=== PATIENT | female | born 1975 | race American Indian/Alaskan Native ===

== ENCOUNTER 2020-12-23 09:58 | Emergency (ER) | payer SELFPAY ==
[2020-12-23] MEDS ORDERED: ONDANSETRON 4 MG/2 ML INJ IV ONE ×2 (10:52→13:46)
[2020-12-23] MEDS ORDERED: SODIUM CHLORIDE 0.9% 1000 ML 1,000 ML IV ONE (10:52)
[2020-12-23] MEDS ORDERED: KETOROLAC 30 MG/1 ML INJ IV ONE ×2 (10:52→13:46)
--- NOTE | 2020-12-23 10:53 | Emergency Department Report ---
ED Headache HPI - General Chief Complaint: Headache Stated Complaint: DIZZINESS Time Seen by Provider: 12/23/20 10:47 Source: patient - History of Present Illness Initial Comments: 45 yo comes to ER co headache x 1 day. She states she woke up with it yesterday and it has not gone away or gotten any better despite OTC pain meds. Denies trauma, fever, chills, cough, abd pain, back pain. Denies n/v. Denies light sensitivity. Denies hx of migraine headaches. Did not get covid19 immunization. No known exposure. Pt comes to ER via POV, she is ambulatory and on ill appearing. Timing/Duration: 24 hours Quality: mild Head Injury Location: global Recent Head Trauma: no recent headache/trauma Modifying Factors: worse with: cold therapy, exposure to light, immobilization, medication, movement, rest, other Associated Symptoms: denies: denies symptoms, confusion, fatigue, facial pain, fever/chills, flushing, loss of consciousness, nausea/vomiting, nasal congestion, nasal drainage, numbness in legs/feet, rash, seizures, sinus infection, stiff neck, vision changes, weakness, other Allergies/Adverse Reactions: Allergies tramadol Adverse Reaction (Verified 12/23/20 10:44) Nausea Nausea Home Medications: Ambulatory Orders Ibuprofen [Motrin] 800 mg PO Q8HR PRN #30 tablet 12/23/20 Sulfamethoxazole/Trimethoprim [Bactrim DS TAB] 1 each PO BID #10 tablet 12/23/20 ED Review of Systems ROS: Stated complaint: DIZZINESS Other details as noted in HPI Comment: All other systems reviewed and negative ED Past Medical Hx - Past Medical History Previous Medical History?: No - Surgical History Past Surgical History?: No - Family History Family history: no significant - Social History Smoking Status: Never Smoker Substance Use Type: Alcohol - Medications Home Medications: Home Medications Medication Instructions Recorded Confirmed Last Taken Type Ibuprofen [Motrin] 800 mg PO Q8HR PRN #30 tablet 12/23/20 Unknown Rx Sulfamethoxazole/Trimethoprim 1 each PO BID #10 tablet 12/23/20 Unknown Rx [Bactrim DS TAB] ED Physical Exam - General Limitations: No Limitations General appearance: alert, in no apparent distress - Head Head exam: Present: atraumatic, normocephalic - Eye Eye exam: Present: normal appearance - ENT ENT exam: Present: mucous membranes moist - Neck Neck exam: Present: normal inspection - Respiratory Respiratory exam: Present: normal lung sounds bilaterally. Absent: respiratory distress - Cardiovascular Cardiovascular Exam: Present: regular rate, normal rhythm. Absent: systolic murmur, diastolic murmur, rubs, gallop - GI/Abdominal GI/Abdominal exam: Present: soft, normal bowel sounds - Extremities Exam Extremities exam: Present: normal inspection - Back Exam Back exam: Present: normal inspection - Neurological Exam Neurological exam: Present: alert, oriented X3 - Psychiatric Psychiatric exam: Present: normal affect, normal mood - Skin Skin exam: Present: warm, dry, intact, normal color. Absent: rash ED Course Vital Signs 12/23/20 12/23/20 10:41 14:05 Temperature 98.6 F 98.1 F Pulse Rate 70 115 H Respiratory 16 16 Rate Blood Pressure 133/93 157/84 [Left] O2 Sat by Pulse 98 100 Oximetry ED Medical Decision Making - Lab Data Result diagrams: 12/23/20 11:04 12/23/20 11:04 - Radiology Data Radiology results: report reviewed, image reviewed nap - Medical Decision Making CT head nap labs noted Labs 12/23/20 12/23/20 12/23/20 11:04 11:04 12:00 WBC 4.1 L RBC 4.16 Hgb 11.2 Hct 35.0 MCV 84 MCH 27 L MCHC 32 RDW 16.6 H Plt Count 248 Lymph % (Auto) 20.1 [place] % (Auto) 10.5 H Eos % (Auto) 0.6 Baso % (Auto) 0.5 Lymph # (Auto) 0.8 L [place] # (Auto) 0.4 Eos # (Auto) 0.0 Baso # (Auto) 0.0 Seg Neutrophils % 68.3 Seg Neutrophils # 2.8 Sodium 136 L Potassium 4.2 Chloride 103.1 Carbon Dioxide 26 Anion Gap 11 BUN 7 Creatinine 0.7 Estimated GFR > 60 BUN/Creatinine Ratio 10 Glucose 100 Calcium 9.2 Total Bilirubin 0.30 AST 16 ALT 9 Alkaline Phosphatase 85 Total Protein 7.8 Albumin 3.8 L Albumin/Globulin Ratio 1.0 Urine Color Yellow Urine Turbidity Clear Urine pH 8.0 H Ur Specific [place] 1.008 Urine Protein <15 mg/dl Urine Glucose (UA) Neg Urine Ketones Neg Urine Blood Lg Urine Nitrite Neg Ur Reducing Substances Not Reportable Urine Bilirubin Neg Urine Ictotest Not Reportable Urine Urobilinogen < 2.0 Ur Leukocyte Esterase Neg Urine WBC (Auto) 9.0 H Urine RBC (Auto) 155.0 U Epithel Cells (Auto) 5.0 Urine Mucus Few Urine HCG, Qual Negative Vital Signs 12/23/20 12/23/20 10:41 14:05 Temperature 98.6 F 98.1 F Pulse Rate 70 115 H Respiratory 16 16 Rate Blood Pressure 133/93 157/84 [Left] O2 Sat by Pulse 98 100 Oximetry ua noted preg neg pt denies dysuria, abd pain or back pain. Denies vag discharge or concern for STI. abd soft non tender. No CVA tenderness on exam. urine culture pending medicated with NS 1L/ toradol and zofran. Will dc home on bactrim for UTI- if not sensitive we need to call pt back - she is aware of this and has been asked to be sure the number we have on file is correct. on dc exam pt in nad, reports feeling better, is taking po. HR by provider 88 on d/c exam. Pt d/c home with dc plan of care including diet, activity, meds and follow up. She verbalizes understanding of plan of care. - Differential Diagnosis ro intracranial event/infection/migraine Critical care attestation.: If time is entered above; I have spent that time in minutes in the direct care of this critically ill patient, excluding procedure time. ED Disposition Clinical Impression: UTI (urinary tract infection), Headache Disposition: HOME / SELF CARE / HOMELESS Is pt being admited?: No Does the pt Need Aspirin: No Condition: Stable Instructions: Urinary Tract Infection, Adult, [id number] Additional Instructions: DIET TOLERATED STAY WELL HYDRATED MOTRIN OR TYLENOL FOR PAIN MED ORDERED TODAY FOLLOW UP WITH PCP MONDAY IF NOT BETTER-REFERRAL BELOW Prescriptions: Sulfamethoxazole/Trimethoprim [Bactrim DS TAB] 1 each PO BID #10 tablet Ibuprofen [Motrin] 800 mg PO Q8HR PRN #30 tablet PRN Reason: Pain, Moderate (4-6) Referrals: JAME CARDENAS MD [Staff Physician] - 3-5 Days Time of Disposition: 13:03
--- NOTE | 2020-12-23 11:35 | Cat Scan Report ---
CT HEAD WITHOUT CONTRAST INDICATION / CLINICAL INFORMATION: Headache. TECHNIQUE: Axial imaging performed from the skull apex through the skull base without the use of cont rast. Sagittal and coronal reformatted images. All CT scans at this location are performed using CT dose reduction for ALARA by means of automated exposure control. COMPARISON: None available. FINDINGS: CEREBRAL PARENCHYMA: No significant abnormality. No acute territorial infarct. HEMORRHAGE: None. EXTRA-AXIAL SPACES: Normal in size and morphology for the patient's age. VENTRICULAR SYSTEM: Normal in size and morphology for the patient's age. MIDLINE SHIFT OR HERNIATION: None. CEREBELLUM / BRAINSTEM: No significant abnormality. CALVARIUM: No significant abnormality. ORBITS: Normal as visualized. PARANASAL SINUSES / MASTOID AIR CELLS: Normal as visualized. SOFT TISSUES of HEAD: No significant abnormality. ADDITIONAL FINDINGS: None. IMPRESSION: No acute intracranial abnormality. Cranial CT scan within normal limits. Signer Name: Jordon Shipley Jr, MD Signed: 12/23/2020 11:27 AM Workstation Name: [id number]
[2020-12-23 12:40] LABS: HCG Qualitative,Urine Negative (Negative)
[2020-12-23 12:46] LABS: Bilirubin,Urine NEG (Negative); Blood,Urine LG (Negative); Color,Urine Yellow (Yellow); Mucus,Urine FEW /HPF; Protein,Urine <15 mg/dL mg/dL (Negative); Urobilinogen,Urine < 2.0 mg/dL (<2.0)
[2020-12-23 12:50] LABS: Basophils % (Auto) 0.5 % (0.0-1.8); Eosinophils % (Auto) 0.6 % (0.0-4.3); Hemoglobin 11.2 gm/dl (10.1-14.3); Lymphocytes # (Auto) 0.8 K/mm3 (1.2-5.4); Lymphocytes % (Auto) 20.1 % (13.4-35.0); Mean Corpuscular HGB Conc 32 % (30-34); Mean Corpuscular Volume 84 fl (79-97); Monocytes # (Auto) 0.4 K/mm3 (0.0-0.8); Monocytes % (Auto) 10.5 % (0.0-7.3); Platelet Count 248 K/mm3 (140-440); Red Blood Count 4.16 M/mm3 (3.65-5.03); Red Cell Distribution Width 16.6 % (13.2-15.2)
[2020-12-23 12:56] LABS: Alanine Aminotransferase 9 units/L (7-56); Albumin 3.8 g/dL (3.9-5); Blood Urea Nitrogen 7 mg/dL (7-17); Calcium 9.2 mg/dL (8.4-10.2); Hemolysis Index 8
[2020-12-23 13:28] LABS: BUN/Creatinine Ratio 10
[2020-12-23 14:07] VITALS: BP 157/84
--- NOTE | 2020-12-25 10:12 | Electrocardiograph Report ---
[facility] Test Date: 2020-12-23 Test Time: 10:37:57 Pat Name: KANE ISABEL Department: Room: Gender: F [employer]: : 1975 Requested By: HEATHER SILVESTRE Order Number: [id number] Reading MD: Jewel Yuen Measurements Intervals Ware Rate: 79 P: 42 MD: 158 QRS: 23 QRSD: 88 T: 18 QT: 385 QTc: 442 Interpretive Statements Sinus rhythm Borderline T abnormalities, diffuse leads No previous ECG available for comparison Electronically Signed On 12-25-2020 10:11:56 EDT by Jewel Yuen
== END 2020-12-23 15:14 | disposition home or self-care (01) ==
LOC: ED 09:58
DX: N39.0 Urinary tract infection, site not specified (principal); R51.9 Headache, unspecified; Z72.89 Other problems related to lifestyle; Z88.6 Allergy status to analgesic agent; Z79.899 Other long term (current) drug therapy
CPT/HCPCS: 36415; 70450; 80053; 81001; 81025; 85025; 87086; 93005; 96361; 96374; 96375; 99284; J1885; J2405; J7030

== ENCOUNTER 2021-01-28 23:52 | Emergency (ER) | payer SELFPAY | END 2021-01-28 23:57 | disposition left against medical advice (07) | LOC: ED 23:52 | DX: R07.9 Chest pain, unspecified (principal); Z53.21 Procedure and treatment not carried out due to patient leaving prior to being seen by health care provider ==

== ENCOUNTER 2021-02-20 12:53 | Emergency (ER) | payer SELFPAY | END 2021-02-20 13:20 | disposition left against medical advice (07) | LOC: ED 12:53 | DX: R00.0 Tachycardia, unspecified (principal); Z53.21 Procedure and treatment not carried out due to patient leaving prior to being seen by health care provider ==